=== PATIENT | male | born 1955 | race Caucasian/White ===

== ENCOUNTER 2016-12-23 11:12 | Emergency (ER) | payer MEDICAID ==
[~2016-12-23] VITALS: Ht 165.1 cm; Wt 71.6 kg
[2016-12-23] MEDS ORDERED: SODIUM CHLORIDE 0.9% 1,000 ML IV ONE (12:16)
[2016-12-23] MEDS ORDERED: KETOROLAC 30 MG/1 ML IVPush ONE (12:30)
[2016-12-23] MEDS ORDERED: SODIUM CHLORIDE FLUSH 10ML SYR IVF ONE (12:30)
[2016-12-23] MEDS ORDERED: HYDROmorphone 1 MG/ML, 1ML IVPush PRN (12:30)
[2016-12-23] MEDS ORDERED: ONDANSETRON 2MG/ML, 2ML IVPush ONE (12:30)
[2016-12-23] MEDS ORDERED: OMEP40CA6 PO (12:31)
[2016-12-23] MEDS ORDERED: LISI-167 PO (12:31)
[2016-12-23] MEDS ORDERED: MONT10TA9 PO (12:31)
[2016-12-23 12:34] LABS: HEMOGLOBIN 16.7 g/dL (13.7-18.0)
[2016-12-23 12:46] LABS: ASPARTATE AMINO TRANSFERASE 18 U/L (15-37); BLOOD UREA NITROGEN 9 mg/dL (7-18)
[2016-12-23 13:02] LABS: PATH.CAST-FLAG NOT PRESENT; SPERM-FLAG NOT PRESENT; SRC-FLAG NOT PRESENT; XTAL-FLAG NOT PRESENT; YLC-FLAG NOT PRESENT
[2016-12-23] MEDS ORDERED: ONDANSETRON 2MG/ML, 2ML ONE (13:13)
[2016-12-23] MEDS ORDERED: KETOROLAC 30 MG/1 ML ONE (13:13)
[2016-12-23] MEDS ORDERED: HYDROmorphone 1 MG/ML, 1ML ONE (14:57)
[2016-12-23 15:30] VITALS: BP 124/76
== END 2016-12-23 15:47 | disposition home or self-care (01) ==
LOC: ED 15:41
DX: N20.1 Calculus of ureter (principal); N23 Unspecified renal colic; M54.9 Dorsalgia, unspecified; I10 Essential (primary) hypertension
CPT/HCPCS: 36415; 74176; 80053; 81001; 85025; 87086; 96374; 96375; 99285; J1170; J1885; J2405; J7030

== ENCOUNTER 2017-08-03 23:48 | Emergency (ER) | payer MEDICAID ==
[~2017-08-03] VITALS: Ht 165.1 cm; Wt 75.0 kg
[~2017-08-03 23:48] MED LIST: LISI-167 PO; MONT10TA9 PO; OMEP40CA6 PO
[2017-08-04] MEDS ORDERED: KETOROLAC 30 MG/1 ML ONE (00:20)
[2017-08-04] MEDS ORDERED: DIAZEPAM 5 MG TABLET ONE (00:20)
[2017-08-04] MEDS ORDERED: DIAZEPAM 5 MG TABLET PO ONE (00:30)
[2017-08-04] MEDS ORDERED: KETOROLAC 30 MG/1 ML IM ONE (00:30)
[2017-08-04 00:48] LABS: ASPARTATE AMINO TRANSFERASE 40 U/L (15-37); BLOOD UREA NITROGEN 16 mg/dL (7-18)
[2017-08-04 00:52] LABS: HEMATOCRIT 46.1 % (39.2-51.8); HEMOGLOBIN 15.8 g/dL (13.7-18.0); WHITE BLOOD COUNT 10.6 x10^3/uL (3.4-10)
[2017-08-04 01:03] LABS: IS PT STATUS REG ER OR PRE ER? YES
[2017-08-04 01:31] VITALS: BP 117/78
== END 2017-08-04 01:31 | disposition home or self-care (01) ==
LOC: ED 08-04 01:00
DX: R07.89 Other chest pain (principal); I10 Essential (primary) hypertension; K21.9 Gastro-esophageal reflux disease without esophagitis; Z86.718 Personal history of other venous thrombosis and embolism
CPT/HCPCS: 36415; 71020; 80053; 84484; 85025; 96372; 99285; J1885

== ENCOUNTER 2017-09-02 21:21 | Emergency (ER) | payer MEDICAID ==
[~2017-09-02] VITALS: Ht 167.6 cm; Wt 76.3 kg
[2017-09-02 21:23] VITALS: BP 130/81
== END 2017-09-02 22:58 | disposition home or self-care (01) ==
LOC: ED 22:05
DX: H10.021 Other mucopurulent conjunctivitis, right eye (principal); I10 Essential (primary) hypertension; K21.9 Gastro-esophageal reflux disease without esophagitis
CPT/HCPCS: 99283

== ENCOUNTER 2018-04-20 23:09 | Inpatient (IN) | payer MEDICAID ==
[~2018-04-20] VITALS: Ht 167.6 cm; Wt 72.5 kg
[2018-04-20] MEDS ORDERED: ONDANSETRON 2MG/ML, 2ML ONE (23:47)
[2018-04-20] MEDS ORDERED: MORPHINE SULFATE 4 MG/ML, 1ML ONE (23:48)
[2018-04-20] MEDS ORDERED: LIDOCAINE-MPF 2%, 2ML ONE (23:48)
[2018-04-21] MEDS ORDERED: LIDOCAINE-MPF 2%, 2ML SQ ONE
[2018-04-21] MEDS ORDERED: OXYcodone/APAP 5/325MG TABLET PO ONE
[2018-04-21] MEDS ORDERED: MORPHINE SULFATE 4 MG/ML, 1ML IVPush PRN
[2018-04-21] MEDS ORDERED: ONDANSETRON 2MG/ML, 2ML IVPush ONE
[2018-04-21] MEDS ORDERED: SODIUM CHLORIDE FLUSH 10ML SYR IVF ONE
[2018-04-21 00:08] LABS: BASOPHILS # (AUTO) 0.12 x10^3/uL (0-0.1); BASOPHILS % (AUTO) 1 % (0-1); EOSINOPHILS # (AUTO) 0.06 x10^3/uL (0-0.4); EOSINOPHILS % (AUTO) 0 % (1-7); LYMPHOCYTES # (AUTO) 2.02 x10^3/uL (1-3.4); LYMPHOCYTES % (AUTO) 11 % (22-44); MD NO; MEAN CORPUSCULAR HEMOGLOBIN 29.2 pg (27.5-34.5); MEAN CORPUSCULAR HGB CONC 34.6 g/dL (33.2-36.2); MEAN CORPUSCULAR VOLUME 84.5 fL (81-97); MEAN PLATELET VOLUME 8.9 fL (7.4-10.4); MONOCYTES # (AUTO) 1.35 x10^3/uL (0.2-0.8); MONOCYTES % (AUTO) 8 % (2-9); NEUTROPHILS # (AUTO) 14.47 x10^3/uL (1.8-6.8); NEUTROPHILS % (AUTO) 80 % (42-75); PLATELET COUNT 310 x10^3/uL (130-400); RED BLOOD COUNT 4.97 x10^6/uL (4.38-5.82); RED CELL DISTRIBUTION WIDTH 15.3 % (9.4-14.8)
[2018-04-21 00:20] LABS: ALBUMIN 3.8 g/dL (3.4-5.0); ANION GAP 9 mmol/L (5-15); CALCIUM 8.9 mg/dL (8.5-10.1); CHLORIDE 108 mmol/L (98-107); CREATININE 1.05 mg/dL (0.7-1.3)
[2018-04-21] MEDS ORDERED: LOSA50TA6 PO (00:24)
[2018-04-21] MEDS ORDERED: MONT4TAB7 PO (00:25)
[2018-04-21] MEDS ORDERED: SODIUM CHLORIDE 0.9% 1,000ML IVBOLUS ONE (00:30)
[2018-04-21] MEDS ORDERED: AMPICILLIN/SULBACTAM 3 GM in SODIUM CHLORIDE 0.9% 100 ML IV ONE (01:00)
[2018-04-21] MEDS ORDERED: VANCOMYCIN PER PHARMACY MC PRN ×2 (01:00→02:00)
[2018-04-21] MEDS ORDERED: VANCOMYCIN 1,500 MG in SODIUM CHLORIDE 0.9% 250 ML IV ONE (01:30)
[2018-04-21] MEDS ORDERED: PHARMACOKINETIC CONSULTATION MC ONE (01:30)
[2018-04-21 01:48] VITALS: BP 118/75
[2018-04-21 02:13] VITALS: BP 118/75
[2018-04-21] MEDS ORDERED: POLYETHYLENE GLYCOL 17 GM PACKET PO PRN (02:30)
[2018-04-21] MEDS ORDERED: PHARMACOKINETIC MONITORING MC PRN (02:30)
[2018-04-21] MEDS ORDERED: LABETALOL 5MG/ML, 20ML IVPush PRN (02:30)
[2018-04-21] MEDS ORDERED: hydrALAzine 20 MG/ML, 1ML IVPush PRN (02:30)
[2018-04-21] MEDS ORDERED: ONDANSETRON 2MG/ML, 2ML IVPush PRN (02:30)
[2018-04-21] MEDS ORDERED: BISACODYL 10 MG SUPP PR PRN (02:30)
[2018-04-21] MEDS ORDERED: PROMETHAZINE 25 MG/ML, 1ML IM PRN (02:30)
[2018-04-21] MEDS ORDERED: ACETAMINOPHEN 325 MG TABLET PO PRN (02:30)
[2018-04-21] MEDS ORDERED: ENALAPRILAT 1.25 MG/ML, 2ML IVPush PRN (02:30)
[2018-04-21 02:46] LABS: FREE T4 (FREE THYROXINE) 0.99 ng/dL (0.76-1.46); THYROID STIMULATING HORMONE 2.03 mIU/L (0.358-3.740)
[2018-04-21 02:49] LABS: HEMOGLOBIN A1C 5.4 % (4.2-6.3)
[2018-04-21] MEDS: HEPARIN 5,000 UNITS/ML, 1ML SQ SCH ×3 (02:49→21:29)
[2018-04-21] MEDS: SODIUM CHLORIDE 0.9% 1,000 ML IV SCH ×2 (02:56→16:33)
[2018-04-21] MEDS: OXYcodone IR 5MG TABLET PO PRN ×5 (03:16→22:40)
[2018-04-21] MEDS: AMPICILLIN/SULBACTAM 3 GM in SODIUM CHLORIDE 0.9% 100 ML IV SCH ×3 (08:33→19:24)
[2018-04-21] MEDS ORDERED: OMNIPAQUE 350 MG/ML, 100ML BOTTLE ONE (09:53)
[2018-04-21 10:27] VITALS: BP 114/70
[2018-04-21 15:00] VITALS: BP 114/74
[2018-04-21] MEDS: LACTOBACILLUS CHEW TABLET PO SCH ×2 (16:33→21:29)
[2018-04-21] MEDS: VANCOMYCIN 1,500 MG in SODIUM CHLORIDE 0.9% 250 ML IV SCH (16:34)
[2018-04-21 19:20] VITALS: BP 109/64
[2018-04-21] MEDS: DOCUSATE 100 MG CAPSULE PO PRN (21:29)
[2018-04-22] MEDS: AMPICILLIN/SULBACTAM 3 GM in SODIUM CHLORIDE 0.9% 100 ML IV SCH ×4 (01:16→20:58)
[2018-04-22 02:51] VITALS: BP 103/65
[2018-04-22] MEDS: OXYcodone IR 5MG TABLET PO PRN ×4 (02:51→19:44)
[2018-04-22 04:47] LABS: BASOPHILS # (AUTO) 0.05 x10^3/uL (0-0.1); BASOPHILS % (AUTO) 0 % (0-1); EOSINOPHILS # (AUTO) 0.09 x10^3/uL (0-0.4); EOSINOPHILS % (AUTO) 1 % (1-7); LYMPHOCYTES # (AUTO) 2.01 x10^3/uL (1-3.4); LYMPHOCYTES % (AUTO) 16 % (22-44); MD NO; MEAN CORPUSCULAR HEMOGLOBIN 28.5 pg (27.5-34.5); MEAN CORPUSCULAR HGB CONC 33.7 g/dL (33.2-36.2); MEAN CORPUSCULAR VOLUME 84.4 fL (81-97); MEAN PLATELET VOLUME 9.2 fL (7.4-10.4); MONOCYTES # (AUTO) 1.44 x10^3/uL (0.2-0.8); MONOCYTES % (AUTO) 11 % (2-9); NEUTROPHILS # (AUTO) 9.41 x10^3/uL (1.8-6.8); NEUTROPHILS % (AUTO) 72 % (42-75); PLATELET COUNT 242 x10^3/uL (130-400); RED BLOOD COUNT 3.95 x10^6/uL (4.38-5.82); RED CELL DISTRIBUTION WIDTH 15.4 % (9.4-14.8)
[2018-04-22 04:51] LABS: ALANINE AMINOTRANSFERASE 48 U/L (12-78); ALBUMIN 2.7 g/dL (3.4-5.0); ANION GAP 7 mmol/L (5-15); CALCIUM 7.9 mg/dL (8.5-10.1); CHLORIDE 107 mmol/L (98-107)
[2018-04-22 04:54] LABS: ALKALINE PHOSPHATASE 96 U/L (45-117); BILIRUBIN,TOTAL 1.1 mg/dL (0.2-1.0); CHOL/HDL RATIO 3.7; CHOLESTEROL, TOTAL 119 mg/dL (140-239); CREATININE 1.03 mg/dL (0.7-1.3); HDL CHOL % 27 % (26-37); HDL CHOLESTEROL (DIRECT) 32 mg/dL (40-60); LDL CHOLESTEROL,CALCULATED 64 mg/dL (54-169); TOTAL PROTEIN 6.2 g/dL (6.4-8.2); TRIGLYCERIDES 114 mg/dL (50-200); VLDL CHOLESTEROL 23 mg/dL (0-25)
[2018-04-22] MEDS: HEPARIN 5,000 UNITS/ML, 1ML SQ SCH ×2 (08:01→17:00)
[2018-04-22] MEDS: LACTOBACILLUS CHEW TABLET PO SCH ×3 (08:02→20:58)
[2018-04-22] MEDS: DOCUSATE 100 MG CAPSULE PO PRN (08:24)
[2018-04-22 08:47] VITALS: BP 117/66
[2018-04-22] MEDS: VANCOMYCIN 1,500 MG in SODIUM CHLORIDE 0.9% 250 ML IV SCH (12:09)
[2018-04-22 14:30] VITALS: BP 102/56
[2018-04-22 18:43] VITALS: BP 97/61
[2018-04-22] MEDS: ONDANSETRON ODT 4 MG PO PRN (20:58)
[2018-04-23] MEDS: HEPARIN 5,000 UNITS/ML, 1ML SQ SCH ×3 (01:00→17:56)
[2018-04-23 01:49] VITALS: BP 112/65
[2018-04-23] MEDS: AMPICILLIN/SULBACTAM 3 GM in SODIUM CHLORIDE 0.9% 100 ML IV SCH ×4 (03:29→21:11)
[2018-04-23] MEDS: VANCOMYCIN 1,500 MG in SODIUM CHLORIDE 0.9% 250 ML IV SCH ×2 (05:08→22:47)
[2018-04-23] MEDS: OXYcodone IR 5MG TABLET PO PRN ×4 (05:08→20:04)
[2018-04-23 08:30] VITALS: BP 102/73
[2018-04-23] MEDS: LACTOBACILLUS CHEW TABLET PO SCH ×3 (10:27→20:04)
[2018-04-23] MEDS: ONDANSETRON ODT 4 MG PO PRN (11:19)
[2018-04-23 14:30] VITALS: BP 101/53
[2018-04-23] MEDS: MONTELUKAST 4 MG TAB.CHEW PO SCH (15:53)
[2018-04-23] MEDS: morphine SULFATE 10 MG/ML, 1ML IVPush PRN (16:05)
[2018-04-23 18:38] VITALS: BP 93/58
[2018-04-24] MEDS: HEPARIN 5,000 UNITS/ML, 1ML SQ SCH ×3 (00:18→17:15)
[2018-04-24 00:48] VITALS: BP 95/59
[2018-04-24] MEDS: OXYcodone IR 5MG TABLET PO PRN ×3 (00:53→20:04)
[2018-04-24] MEDS: AMPICILLIN/SULBACTAM 3 GM in SODIUM CHLORIDE 0.9% 100 ML IV SCH ×3 (01:10→14:13)
[2018-04-24 06:21] LABS: BASOPHILS # (AUTO) 0.03 x10^3/uL (0-0.1); BASOPHILS % (AUTO) 0 % (0-1); EOSINOPHILS # (AUTO) 0.29 x10^3/uL (0-0.4); EOSINOPHILS % (AUTO) 3 % (1-7); LYMPHOCYTES # (AUTO) 1.55 x10^3/uL (1-3.4); LYMPHOCYTES % (AUTO) 15 % (22-44); MD NO; MEAN CORPUSCULAR HEMOGLOBIN 28.5 pg (27.5-34.5); MEAN CORPUSCULAR HGB CONC 33.9 g/dL (33.2-36.2); MEAN CORPUSCULAR VOLUME 84.1 fL (81-97); MEAN PLATELET VOLUME 8.5 fL (7.4-10.4); MONOCYTES % (AUTO) 12 % (2-9); NEUTROPHILS # (AUTO) 7.16 x10^3/uL (1.8-6.8); NEUTROPHILS % (AUTO) 70 % (42-75); PLATELET COUNT 306 x10^3/uL (130-400); RED BLOOD COUNT 3.89 x10^6/uL (4.38-5.82); RED CELL DISTRIBUTION WIDTH 15.1 % (9.4-14.8)
[2018-04-24 06:38] LABS: ANION GAP 5 mmol/L (5-15); CALCIUM 8.6 mg/dL (8.5-10.1); CHLORIDE 106 mmol/L (98-107)
[2018-04-24] MEDS: LACTOBACILLUS CHEW TABLET PO SCH ×3 (08:14→20:04)
[2018-04-24] MEDS: LOSARTAN 50MG TABLET PO SCH ×2 (08:14→09:00)
[2018-04-24] MEDS: MONTELUKAST 4 MG TAB.CHEW PO SCH (08:15)
[2018-04-24 08:30] VITALS: BP 100/58
[2018-04-24] MEDS: LOSARTAN 25MG TABLET PO SCH (12:30)
[2018-04-24] MEDS: morphine SULFATE 10 MG/ML, 1ML IVPush PRN (12:30)
[2018-04-24 14:30] VITALS: BP 111/66
[2018-04-24] MEDS: VANCOMYCIN 1,500 MG in SODIUM CHLORIDE 0.9% 250 ML IV SCH (17:15)
[2018-04-24 18:46] VITALS: BP 116/72
[2018-04-24] MEDS ORDERED: HEMORRHOIDAL OINT, 28 GM (PREP H) RC PRN (22:00)
[2018-04-25] MEDS: HEPARIN 5,000 UNITS/ML, 1ML SQ SCH ×3 (00:47→18:01)
[2018-04-25 00:48] VITALS: BP 106/68
[2018-04-25 05:48] LABS: BASOPHILS # (AUTO) 0.03 x10^3/uL (0-0.1); BASOPHILS % (AUTO) 0 % (0-1); EOSINOPHILS # (AUTO) 0.26 x10^3/uL (0-0.4); EOSINOPHILS % (AUTO) 3 % (1-7); LYMPHOCYTES # (AUTO) 1.94 x10^3/uL (1-3.4); LYMPHOCYTES % (AUTO) 19 % (22-44); MD NO; MEAN CORPUSCULAR HEMOGLOBIN 29.2 pg (27.5-34.5); MEAN CORPUSCULAR VOLUME 85.8 fL (81-97); MEAN PLATELET VOLUME 8.4 fL (7.4-10.4); MONOCYTES # (AUTO) 1.13 x10^3/uL (0.2-0.8); MONOCYTES % (AUTO) 11 % (2-9); NEUTROPHILS # (AUTO) 6.77 x10^3/uL (1.8-6.8); NEUTROPHILS % (AUTO) 67 % (42-75); PLATELET COUNT 313 x10^3/uL (130-400); RED BLOOD COUNT 3.86 x10^6/uL (4.38-5.82); RED CELL DISTRIBUTION WIDTH 15.1 % (9.4-14.8)
[2018-04-25 05:55] LABS: ALANINE AMINOTRANSFERASE 36 U/L (12-78); ALBUMIN 2.9 g/dL (3.4-5.0); ANION GAP 8 mmol/L (5-15); CALCIUM 8.7 mg/dL (8.5-10.1); CHLORIDE 107 mmol/L (98-107)
[2018-04-25 05:58] LABS: ALKALINE PHOSPHATASE 117 U/L (45-117); BILIRUBIN,TOTAL 0.6 mg/dL (0.2-1.0); CREATININE 0.97 mg/dL (0.7-1.3); TOTAL PROTEIN 6.8 g/dL (6.4-8.2)
[2018-04-25 08:21] VITALS: BP 122/86
[2018-04-25] MEDS: LACTOBACILLUS CHEW TABLET PO SCH ×3 (09:21→21:41)
[2018-04-25] MEDS: LOSARTAN 25MG TABLET PO SCH (09:22)
[2018-04-25] MEDS: MONTELUKAST 4 MG TAB.CHEW PO SCH (09:23)
[2018-04-25] MEDS: OXYcodone IR 5MG TABLET PO PRN ×3 (11:56→22:00)
[2018-04-25] MEDS: VANCOMYCIN 1,500 MG in SODIUM CHLORIDE 0.9% 250 ML IV SCH (11:56)
[2018-04-25] MEDS ORDERED: LOSARTAN 25MG TABLET PO SCH (12:00)
[2018-04-25] MEDS: morphine SULFATE 10 MG/ML, 1ML IVPush PRN (15:03)
[2018-04-25 15:29] VITALS: BP 91/73
[2018-04-25 19:22] VITALS: BP 107/68
[2018-04-26] MEDS: HEPARIN 5,000 UNITS/ML, 1ML SQ SCH ×3 (01:52→17:20)
[2018-04-26] MEDS: OXYcodone IR 5MG TABLET PO PRN ×3 (01:52→11:55)
[2018-04-26 05:49] VITALS: BP 117/66
[2018-04-26] MEDS: VANCOMYCIN 1,500 MG in SODIUM CHLORIDE 0.9% 250 ML IV SCH (06:00)
[2018-04-26 06:55] LABS: BASOPHILS # (AUTO) 0.07 x10^3/uL (0-0.1); BASOPHILS % (AUTO) 1 % (0-1); EOSINOPHILS # (AUTO) 0.28 x10^3/uL (0-0.4); EOSINOPHILS % (AUTO) 3 % (1-7); LYMPHOCYTES # (AUTO) 2.19 x10^3/uL (1-3.4); LYMPHOCYTES % (AUTO) 22 % (22-44); MD NO; MEAN CORPUSCULAR HEMOGLOBIN 29.4 pg (27.5-34.5); MEAN CORPUSCULAR HGB CONC 34.1 g/dL (33.2-36.2); MEAN CORPUSCULAR VOLUME 86.4 fL (81-97); MONOCYTES # (AUTO) 0.97 x10^3/uL (0.2-0.8); MONOCYTES % (AUTO) 10 % (2-9); NEUTROPHILS # (AUTO) 6.57 x10^3/uL (1.8-6.8); NEUTROPHILS % (AUTO) 65 % (42-75); PLATELET COUNT 339 x10^3/uL (130-400); RED BLOOD COUNT 3.81 x10^6/uL (4.38-5.82); RED CELL DISTRIBUTION WIDTH 15.2 % (9.4-14.8)
[2018-04-26 07:05] LABS: ALANINE AMINOTRANSFERASE 32 U/L (12-78); ALBUMIN 2.9 g/dL (3.4-5.0); ANION GAP 7 mmol/L (5-15); CALCIUM 8.2 mg/dL (8.5-10.1); CHLORIDE 107 mmol/L (98-107)
[2018-04-26 07:08] LABS: ALKALINE PHOSPHATASE 104 U/L (45-117); BILIRUBIN,TOTAL 0.4 mg/dL (0.2-1.0); CREATININE 0.98 mg/dL (0.7-1.3); TOTAL PROTEIN 6.4 g/dL (6.4-8.2)
[2018-04-26 07:32] VITALS: BP 103/67
[2018-04-26] MEDS: LACTOBACILLUS CHEW TABLET PO SCH ×2 (08:58→16:22)
[2018-04-26] MEDS: MONTELUKAST 4 MG TAB.CHEW PO SCH (08:58)
[2018-04-26] MEDS: LOSARTAN 25MG TABLET PO SCH (08:58)
[2018-04-26] MEDS ORDERED: OMNIPAQUE 350 MG/ML, 100ML BOTTLE ONE (10:12)
[2018-04-26] MEDS ORDERED: LINE600T37 PO (14:26)
[2018-04-26] MEDS: morphine SULFATE 10 MG/ML, 1ML IVPush PRN (16:22)
== END 2018-04-26 18:11 | disposition home or self-care (01) | DRG 872 ==
LOC: ED 23:42 → EDIP 04-21 01:08 → 3NE 04-21 01:58
PROVIDERS: ADMIT Internal Medicine; ATTEND Internal Medicine
PROC: 0HJPXZZ Inspection of Skin, External Approach (ICD-10-PCS; principal; 2018-04-21)
DX: A41.9 Sepsis, unspecified organism (principal); L02.31 Cutaneous abscess of buttock; L03.317 Cellulitis of buttock; I10 Essential (primary) hypertension; B95.62 Methicillin resistant Staphylococcus aureus infection as the cause of diseases classified elsewhere; K21.9 Gastro-esophageal reflux disease without esophagitis; Z87.442 Personal history of urinary calculi
CPT/HCPCS: 10060; 36415; 36569; 72193; 80048; 80053; 80061; 80202; 82040; 83036; 83605; 83735; 84100; 84439; 84443; 85025; 85651; 86140; 87040; 87070; 87077; 87186; 87205; 93306; 96361; 96374; 96375; J0295; J1644; J2405; J3370; Q0162; Q9967; J2270; J7030; J7050

== ENCOUNTER 2018-06-01 23:43 | Emergency (ER) | payer MEDICAID ==
[~2018-06-01] VITALS: Ht 167.6 cm; Wt 70.0 kg
[~2018-06-01 23:43] MED LIST changes: +LINE600T37 PO; +LOSA50TA7 PO; +MONT4TAB7 PO
[2018-06-01 23:52] VITALS: BP 133/49
[2018-06-02] MEDS ORDERED: OXYcodone/APAP 10/325MG TABLET ONE (00:25)
[2018-06-02] MEDS ORDERED: LIDOCAINE 1%, 10ML INFIL ONE (00:30)
[2018-06-02] MEDS ORDERED: OXYcodone/APAP 10/325MG TABLET PO ONE (00:30)
== END 2018-06-02 01:24 | disposition home or self-care (01) ==
LOC: ED 06-02 01:18
DX: L02.31 Cutaneous abscess of buttock (principal); R10.2 Pelvic and perineal pain; I10 Essential (primary) hypertension; K21.9 Gastro-esophageal reflux disease without esophagitis
CPT/HCPCS: 10060; 99283; J3490

== ENCOUNTER 2018-06-25 00:19 | Emergency (ER) | payer MEDICAID ==
[~2018-06-25] VITALS: Ht 167.6 cm; Wt 75.8 kg
[2018-06-25] MEDS ORDERED: LIDOCAINE 1%, 10ML INFIL ONE (01:30)
[2018-06-25] MEDS ORDERED: SODIUM CHLORIDE 0.9% 1,000ML IVBOLUS ONE (01:30)
[2018-06-25] MEDS ORDERED: ACETAMINOPHEN 500 MG TABLET PO ONE (01:30)
[2018-06-25 01:50] LABS: BASOPHILS # (AUTO) 0.03 x10^3/uL (0-0.1); BASOPHILS % (AUTO) 0 % (0-1); EOSINOPHILS # (AUTO) 0.21 x10^3/uL (0-0.4); EOSINOPHILS % (AUTO) 1 % (1-7); LYMPHOCYTES # (AUTO) 3.05 x10^3/uL (1-3.4); LYMPHOCYTES % (AUTO) 19 % (22-44); MD NO; MEAN CORPUSCULAR HEMOGLOBIN 28.7 pg (27.5-34.5); MEAN CORPUSCULAR VOLUME 84.3 fL (81-97); MEAN PLATELET VOLUME 9.4 fL (7.4-10.4); MONOCYTES # (AUTO) 1.14 x10^3/uL (0.2-0.8); MONOCYTES % (AUTO) 7 % (2-9); NEUTROPHILS # (AUTO) 11.32 x10^3/uL (1.8-6.8); NEUTROPHILS % (AUTO) 72 % (42-75); PLATELET COUNT 284 x10^3/uL (130-400); RED BLOOD COUNT 4.74 x10^6/uL (4.38-5.82); RED CELL DISTRIBUTION WIDTH 15.8 % (9.4-14.8)
[2018-06-25 02:00] LABS: ALBUMIN 3.7 g/dL (3.4-5.0); ANION GAP 11 mmol/L (5-15); CALCIUM 9.1 mg/dL (8.5-10.1); CHLORIDE 110 mmol/L (98-107); CREATININE 1.03 mg/dL (0.7-1.3)
[2018-06-25] MEDS ORDERED: LIDOCAINE/PF 1%, 30ML INFIL ONE (02:00)
[2018-06-25 02:46] VITALS: BP 130/78
[2018-06-25] MEDS ORDERED: ACETAMINOPHEN 500 MG TABLET ONE (02:48)
== END 2018-06-25 02:47 | disposition home or self-care (01) ==
LOC: ED 01:05
DX: L02.31 Cutaneous abscess of buttock (principal); F17.200 Nicotine dependence, unspecified, uncomplicated; I10 Essential (primary) hypertension; K21.9 Gastro-esophageal reflux disease without esophagitis
CPT/HCPCS: 10060; 36415; 80048; 82040; 85025; 99284; J3490

== ENCOUNTER 2018-12-01 13:28 | Emergency (ER) | payer MEDICAID ==
[~2018-12-01] VITALS: Ht 167.6 cm; Wt 76.9 kg
[~2018-12-01 13:28] MED LIST changes: +LOSA50TA14 PO; -LOSA50TA7 PO
[2018-12-01 14:24] LABS: MICROSCOPIC INDICATED
[2018-12-01 14:25] LABS: BASOPHILS # (AUTO) 0.09 x10^3/uL (0-0.1); BASOPHILS % (AUTO) 1 % (0-1); EOSINOPHILS # (AUTO) 0.23 x10^3/uL (0-0.4); EOSINOPHILS % (AUTO) 3 % (1-7); LYMPHOCYTES # (AUTO) 2.07 x10^3/uL (1-3.4); LYMPHOCYTES % (AUTO) 26 % (22-44); MD NO; MEAN CORPUSCULAR HEMOGLOBIN 29.3 pg (27.5-34.5); MEAN CORPUSCULAR HGB CONC 34.1 g/dL (33.2-36.2); MEAN CORPUSCULAR VOLUME 85.8 fL (81-97); MONOCYTES % (AUTO) 7 % (2-9); NEUTROPHILS # (AUTO) 5.08 x10^3/uL (1.8-6.8); NEUTROPHILS % (AUTO) 63 % (42-75); PLATELET COUNT 353 x10^3/uL (130-400); RED BLOOD COUNT 5.41 x10^6/uL (4.38-5.82); RED CELL DISTRIBUTION WIDTH 15.9 % (9.4-14.8)
[2018-12-01 14:28] LABS: ALANINE AMINOTRANSFERASE 53 U/L (12-78); ALBUMIN 4.4 g/dL (3.4-5.0); ANION GAP 7 mmol/L (5-15); CALCIUM 8.9 mg/dL (8.5-10.1); CHLORIDE 108 mmol/L (98-107); CREATININE 1.16 mg/dL (0.7-1.3)
[2018-12-01 14:30] LABS: ALKALINE PHOSPHATASE 85 U/L (45-117)
--- NOTE | 2018-12-01 14:30 | NUR ---
PT AMBULATES FROM LOBBY TO ROOM
--- NOTE | 2018-12-01 14:35 | NUR ---
CT TO ROOM, PT IN BR.
--- NOTE | 2018-12-01 14:51 | NUR ---
PT TO CT.
[2018-12-01 14:58] LABS: CULTURE INDICATED? NO
--- NOTE | 2018-12-01 15:07 | NUR ---
PT BACK FROM CT, STATES PAIN DECREASED FROM 08/30 TO 04/30. VS UPDATED IN COMPUTER.
[2018-12-01 15:08] VITALS: BP 151/86
--- NOTE | 2018-12-01 15:20 | NUR ---
CT RESULT BACK, PT FOR RECHECK.
[2018-12-01] MEDS ORDERED: KETOROLAC 30 MG/1 ML IM ONE (15:30)
[2018-12-01] MEDS ORDERED: KETOROLAC 30 MG/1 ML ONE (15:37)
== END 2018-12-01 15:51 | disposition home or self-care (01) ==
LOC: ED 15:35
DX: N20.0 Calculus of kidney (principal); K21.9 Gastro-esophageal reflux disease without esophagitis; I10 Essential (primary) hypertension; Z79.899 Other long term (current) drug therapy
CPT/HCPCS: 36415; 74176; 80053; 81001; 83690; 85025; 96372; 99284; J1885

== ENCOUNTER 2019-04-20 09:42 | Outpatient (CLI) | payer MEDICAID ==
[~2019-04-20 09:42] MED LIST changes: +LINE600T2 PO; -LINE600T37 PO
== END 2019-04-20 23:59 | disposition home or self-care (01) ==
LOC: CFH 09:42
PROVIDERS: ATTEND Nurse Practitioner Family
DX: M66.3 Spontaneous rupture of flexor tendons (principal); M25.512 Pain in left shoulder

== ENCOUNTER 2019-05-09 19:21 | Emergency (ER) | payer MEDICAID ==
[~2019-05-09] VITALS: Ht 167.6 cm; Wt 74.4 kg
[2019-05-09 19:24] VITALS: BP 151/95
== END 2019-05-09 20:54 | disposition home or self-care (01) ==
LOC: ED 19:55
DX: G89.29 Other chronic pain (principal); M79.632 Pain in left forearm; D17.9 Benign lipomatous neoplasm, unspecified
CPT/HCPCS: 96372; 99283; J1885

== ENCOUNTER 2019-08-28 08:34 | Emergency (ER) | payer MEDICAID ==
[~2019-08-28] VITALS: Ht 167.6 cm; Wt 76.7 kg
[~2019-08-28 08:34] MED LIST changes: +LINE600T12 PO; -LINE600T2 PO; +OMEP40CA42 PO; -OMEP40CA6 PO
[2019-08-28 08:43] VITALS: BP 111/75
== END 2019-08-28 09:28 | disposition home or self-care (01) ==
LOC: ED 09:18
DX: H10.232 Serous conjunctivitis, except viral, left eye (principal); B34.9 Viral infection, unspecified; K21.9 Gastro-esophageal reflux disease without esophagitis; I10 Essential (primary) hypertension
CPT/HCPCS: 99283

== ENCOUNTER 2019-09-08 19:11 | Emergency (ER) | payer MEDICAID ==
[~2019-09-08] VITALS: Ht 167.6 cm; Wt 78.0 kg
[2019-09-08 19:19] VITALS: BP 141/89
[2019-09-08] MEDS ORDERED: PROPARACAINE OPHTH 0.5%, 15ML EACHEYE ONE (19:30)
[2019-09-08] MEDS ORDERED: FLUORESCEIN OPHTHALMIC 1 MG STRIP EACHEYE ONE (19:30)
[2019-09-08] MEDS ORDERED: PROPARACAINE OPHTH 0.5%, 15ML ONE (19:32)
[2019-09-08] MEDS ORDERED: FLUORESCEIN OPHTHALMIC 1 MG STRIP ONE (19:32)
== END 2019-09-08 20:36 | disposition home or self-care (01) ==
LOC: ED 19:54
DX: H10.13 Acute atopic conjunctivitis, bilateral (principal); K21.9 Gastro-esophageal reflux disease without esophagitis; I10 Essential (primary) hypertension
CPT/HCPCS: 99283

== ENCOUNTER 2019-11-10 11:48 | Emergency (ER) | payer MEDICAID ==
[~2019-11-10] VITALS: Ht 167.6 cm; Wt 74.0 kg
[~2019-11-10 11:48] MED LIST changes: +MONT10TA11 PO; -MONT10TA9 PO
[2019-11-10 12:06] VITALS: BP 128/87
[2019-11-10] MEDS ORDERED: KETOROLAC 30 MG/1 ML IM ONE (12:30)
[2019-11-10] MEDS ORDERED: METHOCARBAMOL 750 MG TABLET PO ONE (12:30)
[2019-11-10] MEDS ORDERED: METHOCARBAMOL 750 MG TABLET ONE (13:05)
[2019-11-10] MEDS ORDERED: KETOROLAC 30 MG/1 ML ONE (13:05)
== END 2019-11-10 14:26 | disposition home or self-care (01) ==
LOC: ED 14:07
DX: M54.32 Sciatica, left side (principal); M79.18 Myalgia, other site; I10 Essential (primary) hypertension; K21.9 Gastro-esophageal reflux disease without esophagitis
CPT/HCPCS: 96372; 99283; J1885

== ENCOUNTER → 2020-06-06 | Outpatient (CLI) | payer MEDICAID ==
[~2020-06-06] MED LIST changes: +ALBU18HF INH; +ASPI81TA45 PO; +CHOL10003 PO; +FLUT9.9S NAS; +[UNRECOGNIZED DRUG - OTHER] PO
[2020-06-06 12:16] LABS: BASOPHILS # (AUTO) 0.06 x10^3/uL (0-0.1); BASOPHILS % (AUTO) 1 % (0-1); EOSINOPHILS # (AUTO) 0.22 x10^3/uL (0-0.4); EOSINOPHILS % (AUTO) 2 % (1-7); LYMPHOCYTES # (AUTO) 2.08 x10^3/uL (1-3.4); LYMPHOCYTES % (AUTO) 19 % (22-44); MD NO; MEAN CORPUSCULAR VOLUME 88.3 fL (81-97); MONOCYTES # (AUTO) 0.89 x10^3/uL (0.2-0.8); MONOCYTES % (AUTO) 8 % (2-9); NEUTROPHILS # (AUTO) 7.46 x10^3/uL (1.8-6.8); NEUTROPHILS % (AUTO) 70 % (42-75); PLATELET COUNT 331 x10^3/uL (130-400); RED BLOOD COUNT 5.37 x10^6/uL (4.38-5.82); RED CELL DISTRIBUTION WIDTH 14.2 % (9.4-14.8)
[2020-06-06 12:27] LABS: ALANINE AMINOTRANSFERASE 71 U/L (12-78); ALBUMIN 3.9 g/dL (3.4-5.0); ANION GAP 7 mmol/L (5-15); CALCIUM 9.8 mg/dL (8.5-10.1); CHLORIDE 109 mmol/L (98-107); CREATININE 0.94 mg/dL (0.7-1.3)
[2020-06-06 12:29] LABS: ALKALINE PHOSPHATASE 89 U/L (45-117); BILIRUBIN,TOTAL 1.4 mg/dL (0.2-1.0); TOTAL PROTEIN 7.8 g/dL (6.4-8.2)
== END | disposition home or self-care (01) ==
LOC: STAR 11:10
PROVIDERS: ATTEND Surgery
DX: Z01.818 Encounter for other preprocedural examination (principal); R22.32 Localized swelling, mass and lump, left upper limb; R94.31 Abnormal electrocardiogram [ECG] [EKG]
CPT/HCPCS: 36415; 80053; 85025; 93005

== ENCOUNTER → 2020-06-08 | Outpatient (CLI) | payer MEDICAID | END | disposition home or self-care (01) | LOC: STAR 15:39 | PROVIDERS: ATTEND Surgery | DX: Z20.828 Contact with and (suspected) exposure to other viral communicable diseases (principal) | CPT/HCPCS: 36415; 87635 ==

== ENCOUNTER 2020-06-13 12:58 | Day surgery (SDC) | payer MEDICAID ==
[~2020-06-13] VITALS: Ht 167.6 cm; Wt 74.9 kg
[2020-06-13] MEDS ORDERED: LACTATED RINGERS 1,000 ML IV SCH (13:22)
[2020-06-13 13:23] VITALS: BP 122/72
[2020-06-13] MEDS ORDERED: CHLORHEXIDINE 15 ML UDC ONE (13:26)
[2020-06-13] MEDS ORDERED: CHLORHEXIDINE 15 ML UDC MM ONE (13:30)
[2020-06-13] MEDS ORDERED: MIDAZOLAM 1 MG/ML, 2ML ONE (15:30)
[2020-06-13] MEDS ORDERED: FENTANYL PF 250 MCG/5ML ONE (15:30)
[2020-06-13] MEDS ORDERED: PROPOFOL 10 MG/ML, 20ML ONE (15:34)
[2020-06-13] MEDS ORDERED: ONDANSETRON 2MG/ML, 2ML ONE (15:34)
[2020-06-13] MEDS ORDERED: CEFAZOLIN 1,000 MG ONE (15:34)
[2020-06-13] MEDS ORDERED: DEXAMETHASONE 4 MG/ML, 1ML ONE (15:34)
[2020-06-13] MEDS ORDERED: PROMETHAZINE 25 MG/ML, 1ML IVPush PRN (16:00)
[2020-06-13] MEDS ORDERED: EPHEDRINE 50 MG/ML, 1ML IVPush PRN (16:00)
[2020-06-13] MEDS ORDERED: MEPERIDINE/PF 25MG/0.5ML IVPush PRN (16:00)
[2020-06-13] MEDS ORDERED: ACETAMINOPHEN 325 MG TABLET PO PRN (16:00)
[2020-06-13] MEDS ORDERED: HYDROmorphone 1 MG/ML, 1ML INJ IVPush PRN (16:00)
[2020-06-13] MEDS ORDERED: FENTANYL PF 100 MCG/2ML IV PRN (16:00)
[2020-06-13] MEDS ORDERED: OXYcodone 5 MG/5 ML ORAL.SOL UDC PO PRN (16:00)
[2020-06-13] MEDS ORDERED: hydrALAzine 20 MG/ML, 1ML IV PRN (16:00)
[2020-06-13] MEDS ORDERED: ONDANSETRON 2MG/ML, 2ML IVPush PRN (16:00)
[2020-06-13] MEDS ORDERED: LABETALOL 5MG/ML, 20ML IV PRN (16:00)
[2020-06-13] MEDS ORDERED: KETOROLAC 30 MG/1 ML ONE (16:44)
[2020-06-13] MEDS ORDERED: BUPIVACAINE/PF 0.5% ONE (16:47)
[2020-06-13] MEDS ORDERED: EPINEPHRINE 1 MG/ML, 1ML ONE ×2 (16:47→16:49)
[2020-06-13] MEDS ORDERED: SODIUM CHLORIDE 0.9% PF 10ML ONE (16:49)
== END 2020-06-13 18:25 | disposition home or self-care (01) ==
LOC: OUT 12:58
PROVIDERS: ATTEND Surgery
DX: R22.32 Localized swelling, mass and lump, left upper limb (principal); I10 Essential (primary) hypertension; J45.909 Unspecified asthma, uncomplicated; Z79.82 Long term (current) use of aspirin; Z79.899 Other long term (current) drug therapy; Z87.442 Personal history of urinary calculi; Z98.890 Other specified postprocedural states
CPT/HCPCS: 24071; 88304; J0171; J0690; J1100; J1885; J2250; J2405; J2704; J3010; J7120; 88305

== ENCOUNTER 2021-01-23 17:01 | Emergency (ER) | payer MEDICAID, MEDICARE ==
[~2021-01-23] VITALS: Ht 167.6 cm; Wt 80.4 kg
[~2021-01-23 17:01] MED LIST changes: -MONT10TA11 PO; +MONT10TA17 PO; +MONT4TAB PO; -MONT4TAB7 PO
--- NOTE | 2021-01-23 19:15 | NUR ---
CHECK WEIGHER: PT. TO ROOM FROM LOBBY AT THIS TIME.
--- NOTE | 2021-01-23 19:18 | NUR ---
EFRAIN White to bedside for eval.
[2021-01-23] MEDS ORDERED: METHOCARBAMOL 750 MG TABLET ONE (19:30)
[2021-01-23] MEDS ORDERED: KETOROLAC 30 MG/1 ML IM ONE (19:30)
[2021-01-23] MEDS ORDERED: METHOCARBAMOL 750 MG TABLET PO ONE (19:30)
[2021-01-23] MEDS ORDERED: KETOROLAC 30 MG/1 ML ONE (19:30)
--- NOTE | 2021-01-23 19:47 | NUR ---
PT AMBULATORY, BACK FROM IMAGING. PT MEDICATED PER ERP ORDER FOR 9/10 BACK PAIN. BP CUFF, PULSE OX IN PLACE. VSS/UPDATED IN COMPUTER. CALL LIGHT WITHIN REACH,WARM BLANKET PROVIDED, AT BS.
--- NOTE | 2021-01-23 20:28 | NUR ---
PT WITH LESS PAIN FOLLOWING MEDICATION. XR RESULTS BACK, PT FOR RECHECK.
[2021-01-23 20:52] VITALS: BP 128/81
== END 2021-01-23 20:57 | disposition home or self-care (01) ==
LOC: ED 19:22
DX: M54.42 Lumbago with sciatica, left side (principal); I10 Essential (primary) hypertension; K21.9 Gastro-esophageal reflux disease without esophagitis; Z87.442 Personal history of urinary calculi
CPT/HCPCS: 72110; 96372; 99283; J1885; J7512